=== PATIENT | male | born 1990 | race Caucasian/White ===

== ENCOUNTER → 2020-02-20 | Outpatient (CLI) | payer SELFPAY | LOC: ZCOL.LAB 16:37 | DX: R05 Cough (principal); Z20.828 Contact with and (suspected) exposure to other viral communicable diseases ==

== ENCOUNTER 2022-04-22 19:37 | Emergency (ER) | payer OTHER ==
[~2022-04-22] VITALS: Ht 172.7 cm; Wt 86.4 kg
[2022-04-22] MEDS ORDERED: ADDERALL XR20 MG PO (19:38)
[2022-04-22 19:39] VITALS: TEMP 98.6
[2022-04-22 21:49] VITALS: BP 107/63; PULSE 86
== END 2022-04-22 21:51 | disposition home or self-care (01) ==
LOC: COL.ER 19:37
DX: S09.90XA Unspecified injury of head, initial encounter (principal); S01.81XA Laceration without foreign body of other part of head, initial encounter; F17.210 Nicotine dependence, cigarettes, uncomplicated; W18.30XA Fall on same level, unspecified, initial encounter; W22.8XXA Striking against or struck by other objects, initial encounter